=== PATIENT | female | born 1945 | race Caucasian/White ===

== ENCOUNTER → 2019-03-20 16:00 | Outpatient (POV) | payer MEDICARE, SELFPAY | DX: Z00.00 Encounter for general adult medical examination without abnormal findings (principal) ==

== ENCOUNTER → 2020-01-15 13:32 | Outpatient (POV) | payer MEDICARE, MEDICAID, SELFPAY | PROVIDERS: PCP Family Medicine | DX: Z00.00 Encounter for general adult medical examination without abnormal findings (principal) ==

== ENCOUNTER → 2020-03-17 12:16 | Outpatient (CLI) | payer MEDICARE, MEDICAID, SELFPAY ==
[2020-03-17 13:21] LABS: Alanine Aminotransferase 17 U/L (12-78); Albumin Level 3.8 g/dl (3.5-5.0); Alkaline Phosphatase 90 U/L (38-126); Aspartate Amino Transferase 37 U/L (14-36); Bilirubin,Direct 0.1 mg/dl (0.0-0.4); Bilirubin,Indirect 0.5 mg/dL (0.0-0.9); Bilirubin,Total 0.6 mg/dl (0.2-1.3); Bilirubin,Unconjugated 0.5 mg/dL (0.0-1.1); Total Protein,Serum 7.6 g/dl (6.3-8.2)
== END ==
PROVIDERS: Visit Provider Internal Medicine Pulmonary Disease
DX: J84.112 Idiopathic pulmonary fibrosis (principal)
CPT/HCPCS: 36415; 80076

== ENCOUNTER 2020-03-30 13:50 | Outpatient (RCR) | payer MEDICARE, MEDICAID, SELFPAY | END 2020-06-11 13:44 | disposition home or self-care (01) | LOC: PT 13:50 | PROVIDERS: Visit Provider Internal Medicine Pulmonary Disease | DX: J84.10 Pulmonary fibrosis, unspecified (principal) | CPT/HCPCS: G0237; G0238 ==

== ENCOUNTER 2020-04-19 20:23 | Emergency (ER) | payer MEDICARE, MEDICAID, SELFPAY ==
[2020-04-19 20:35] VITALS: BP 184/74; PULSE 101; RESP 18; TEMP 36.6; O2SAT 95; BMI 30.2
[2020-04-19 20:40] VITALS: BMI 28.8
--- NOTE | 2020-04-19 20:41 | XR_ITS ---
PROCEDURE: XR CHEST 2V CLINICAL HISTORY: chest discomfort, incr bp COMPARISON: No exams were available for comparison FINDINGS: The cardiomediastinal silhouette and pulmonary vascularity are within normal limits. Use coarsening of the interstitial markings consistent pulmonary fibrosis. May be some patchy infiltrate in the right lower lobe superimposed upon the interstitial lung disease. There no previous available comparison. Lucency noted in the distal aspect of right clavicle may be due to subarticular cystic change IMPRESSION: Pulmonary fibrosis with possible superimposed right lower lobe pneumonia Dictated by: Pedrito Galvin MD 04/20/2020 06:10 Pedrito Galvin MD in [place] 04/20/2020 06:10
--- NOTE | 2020-04-19 20:41 | ECG_ITS ---
APPROVED REPORT Exam: Resting ECG HR:70 bpm ECG Measurements Heart Rate 70 AXES ID 160 P 45 QRSd 70 QRS 11 QT 406 T 68 QTc 438 <Conclusion> Normal sinus rhythm Possible Left atrial enlargement Borderline ECG Electronically signed by : Kosta Ye, 04/20/2020 09:59:23
--- NOTE | 2020-04-19 20:42 | CT_ITS ---
PROCEDURE: CT HEAD/BRAIN WO CON CLINICAL INDICATION: dizziness COMPARISON: CT HEADWO CT head/brain wo con from 06/07/2018 TECHNIQUE: Axial images obtained. All CT scans at the facility use one or more dose reduction, viz: automated exposure control, ma/kV adjustment per patient size (including targeted exams where dose is matched to indication, i.e. head), or iterative reconstruction technique. FINDINGS: No midline shift, mass effect, intracranial hemorrhage, hydrocephalus, or extra-axial fluid collection is evident. The calvarium has an unremarkable appearance. No mastoid effusion. No sinus air-fluid level. IMPRESSION: No acute intracranial finding Dictated by: Pedrito Galvin MD 04/19/2020 22:19 Pedrito Galvin MD in [facility] 04/19/2020 22:19
[2020-04-19 20:57] LABS: Basophils % 0.5 % (0.1-2.0); Eosinophils # 0.2 K/mm3 (0.0-0.4); Hemoglobin 13.8 g/dL (12.2-16.2); Lymphocytes # 2.8 K/mm3 (0.7-4.5); Lymphocytes % 38.4 % (10-50); Mean Corpuscular HGB Conc 33.6 g/dL (31.8-35.4); Mean Corpuscular Hemoglobin 33.4 pg (27.0-31.2); Mean Corpuscular Volume 99.3 fl (81-99); Mean Platelet Volume 7.7 fl (7.4-10.4); Monocytes # 0.4 K/mm3 (0.1-1.0); Platelet Count 269 K/mm3 (142-424); Red Blood Count 4.13 M/mm3 (4.20-5.40); Red Cell Distribution Width 12.9 % (11.5-17.5); White Blood Count 7.4 K/mm3 (4.8-10.8)
[2020-04-19 20:59] LABS: Anion Gap 12.4 mEq/L (5-15); Blood Urea Nitrogen 22 mg/dl (7-17); Calcium 9.4 mg/dl (8.4-10.2); Carbon Dioxide 31 mmol/L (22.0-30.0); Chloride 97 mmol/L (98-107); Creatinine Clearance Estimated 68 mL/min (50-200); Estimated Glomerular Filt Rate 61 ml/min (>60); GFR (African American) 74 ML/MIN (>60); Glucose 344 mg/dl (74-100); Potassium 4.4 mmoL/L (3.5-5.1); Sodium 136 mmol/L (136-145)
[2020-04-19 21:13] LABS: Troponin I < 0.01 ng/ml (0.00-0.034)
[2020-04-19 21:22] VITALS: BP 171/76; PULSE 78; RESP 18; O2SAT 98
[2020-04-19 21:45] VITALS: BP 140/72; PULSE 74; RESP 18; O2SAT 98
[2020-04-19 22:19] LABS: Microscopic, Urine URINE MICROSCOPIC (MICROSCOPIC)
[2020-04-19 22:21] LABS: Appearance,Urine CLEAR (Clear); Bilirubin,Urine Negative (Negative); Blood, Urine TRACE-I (Negative); Color,Urine YELLOW (Yellow); Glucose,Urine (UA) 3+ (Negative); Ketones,Urine Negative (Negative); Leukocyte Esterase,Urine TRACE (Negative); Nitrate,Urine Negative (Negative); PH,Urine 5.5 (5.0-8.5); Protein,Urine Negative (Negative); Urobilinogen,Urine 0.2 EU/dl (0.2)
--- NOTE | 2020-04-19 22:26 | HMH.EDDIZZ ---
ED Disposition Clinical Impression: Vertigo, Pulmonary fibrosis, unspecified, Diabetes 1.5, managed as type 1 Disposition: Home, Self-Care Condition on Discharge: Good Instructions: Vertigo Additional Instructions: call pcp in am Referrals: Roger Cisneros [Primary Care Provider] - - Critical Care Critical Care Time: No Attestation: On 04/19/20, the high probability of a clinically significant, sudden or life threatening deterioration of the following system(s) required my full and direct attention, intervention and personal management. The time I documented below is in addition to time spent performing reported procedures but includes the following listed in this critical care notation. Medical Decision Making - Medical Records Medical records reviewed: Yes: I reviewed the patient's medical records. - Alex Inquiry Pt receiving controlled substance: No Vital Signs: 04/19/20 20:35 04/19/20 21:22 04/19/20 21:45 Temperature 97.8 F Temperature Source Oral Pulse Rate [Left] 101 H 78 74 Respiratory Rate 18 18 18 Blood Pressure [Left Arm] 184/74 H 171/76 H 140/72 Blood Pressure Mean [Left Arm] 110 107 94 Blood Pressure Source [Left Arm] Automatic Cuff Automatic Cuff Automatic Cuff Blood Pressure Position [Left Arm] Sitting Sitting Sitting 02 Sat by Pulse Oximetry 95 98 98 Oxygen Delivery Method Room Air Room Air Room Air 04/19/20 22:33 Temperature Temperature Source Pulse Rate [Left] 74 Respiratory Rate 17 Blood Pressure [Left Arm] 154/72 H Blood Pressure Mean [Left Arm] 99 Blood Pressure Source [Left Arm] Automatic Cuff Blood Pressure Position [Left Arm] Sitting 02 Sat by Pulse Oximetry 97 Oxygen Delivery Method Room Air - Lab Data Lab results reviewed: Yes: I reviewed the patient's lab results. Lab Results 04/19/20 20:58: WBC 7.4, RBC 4.13 L, Hgb 13.8, Hct 41.0, MCV 99.3 H, MCH 33.4 H, MCHC 33.6, RDW 12.9, Plt Count 269, MPV 7.7, Neut % (Auto) 54.0, Lymph % (Auto) 38.4, Snyder % (Auto) 5.0, Eos % (Auto) 2.0, Baso % (Auto) 0.5, Neut # (Auto) 4.0, Lymph # (Auto) 2.8, Snyder # (Auto) 0.4, Eos # (Auto) 0.2, Baso # (Auto) 0.0 04/19/20 20:58: Sodium 136, Potassium 4.4, Chloride 97 L, Carbon Dioxide 31 H, Anion Gap 12.4, BUN 22 H, Creatinine 0.90, Estimated Creat Clear 68, Estimated GFR 61, Est GFR ( Amer) 74, Glucose 344 H, Calcium 9.4, Troponin I < 0.01 04/19/20 22:15: Urine Color Yellow, Urine Appearance Clear, Urine pH 5.5, Ur Specific [place] 1.020, Urine Protein Negative, Urine Glucose (UA) 3+, Urine Ketones Negative, Urine Blood Trace-i, Urine Nitrate Negative, Urine Bilirubin Negative, Urine Urobilinogen 0.2, Ur Leukocyte Esterase Trace, Urine RBC 3-5, Urine WBC 20-50, Ur Squamous Epith Cells 3-5 Result diagrams: 04/19/20 20:58 04/19/20 20:58 Orders (Tests/Meds): ORDERS Category Date Time Status XR chest 2V Stat Exams 04/19/20 20:41 Taken Troponin I Q3H Lab 04/19/20 23:45 Ordered Troponin I Q3H Lab 04/20/20 02:45 Ordered Urine Culture Stat Micro 04/19/20 22:15 Received - Radiology Data #1 Image(s): Chest Image Reviewed: Yes I reviewed the patient's radiology image Preliminary Findings: Abnormal (pul fibrosis) - CT Data CT Scan: Head Time Received: 22:[address] Reviewed: Yes: I have viewed the radiologist's interpretation Preliminary Findings: Normal/NAD - ECG Data Tracing #1 Normal Sinus Rhythm: Yes Ischemic changes: non-specific ST-T wave changes Dizzy HPI - General Chief Complaint: Dizziness Stated Complaint: Blood pressure up&down Time Seen by Provider: 04/19/20 21:00 Mode of Arrival: Ambulatory Source of Information: Patient, Medical Record Limitations: No Limitations Description of Symptoms (Recalled from ER Triage Doc. by RN): pt states her blood presurre has been high all day and she is dizzy. - History of Present Illness HPI Narrative: pt with episode of dizzy this afternoon worse with mov - no speech or visual sx and no other neur
[2020-04-19 22:27] LABS: WBC,Urine 20-50 #/hpf (0-3)
[2020-04-19 22:33] VITALS: BP 154/72; PULSE 74; RESP 17; O2SAT 97
[2020-04-19 22:49] VITALS: BP 154/72; PULSE 78; RESP 17; TEMP 36.6; O2SAT 97
[2020-04-19 23:16] LABS: Hemoglobin A1C 8.7 % (4.0-6.0)
== END 2020-04-19 22:51 | disposition home or self-care (01) ==
PROVIDERS: Emergency Provider Emergency Medicine; PCP Family Medicine
DX: R42 Dizziness and giddiness (principal); J84.10 Pulmonary fibrosis, unspecified; I10 Essential (primary) hypertension; E10.65 Type 1 diabetes mellitus with hyperglycemia; Z79.4 Long term (current) use of insulin; Z79.899 Other long term (current) drug therapy
CPT/HCPCS: 70450; 71046; 80048; 81001; 83036; 84484; 85025; 87086; 93005; 99283

== ENCOUNTER → 2020-05-27 15:38 | Outpatient (CLI) | payer MEDICARE, MEDICAID, SELFPAY ==
[2020-05-27 16:16] LABS: Basophils % 0.6 % (0.1-2.0); Eosinophils # 0.1 K/mm3 (0.0-0.4); Eosinophils % 1.7 % (0.1-12.0); Hematocrit 40.5 % (37.0-47.0); Hemoglobin 13.3 g/dL (12.2-16.2); Lymphocytes % 34.6 % (10-50); Mean Corpuscular HGB Conc 32.9 g/dL (31.8-35.4); Mean Corpuscular Hemoglobin 34.2 pg (27.0-31.2); Mean Corpuscular Volume 103.9 fl (81-99); Mean Platelet Volume 7.9 fl (7.4-10.4); Monocytes # 0.3 K/mm3 (0.1-1.0); Monocytes % 5.9 % (1.7-9.3); Neutrophils # 3.3 K/mm3 (1.8-7.8); Neutrophils % 57.2 % (37.0-80.0); Platelet Count 256 K/mm3 (142-424); Red Cell Distribution Width 13.2 % (11.5-17.5); White Blood Count 5.8 K/mm3 (4.8-10.8)
[2020-05-27 16:40] LABS: Erythrocyte Sedimentation Rate 70 mm/hr (0-30)
[2020-05-27 16:43] LABS: Alanine Aminotransferase 24 U/L (12-78); Albumin Level 4.1 g/dl (3.5-5.0); Alkaline Phosphatase 130 U/L (38-126); Anion Gap 11.3 mEq/L (5-15); Aspartate Amino Transferase 39 U/L (14-36); Bilirubin,Direct 0.2 mg/dl (0.0-0.4); Bilirubin,Indirect 0.4 mg/dL (0.0-0.9); Bilirubin,Total 0.6 mg/dl (0.2-1.3); Bilirubin,Unconjugated 0.4 mg/dL (0.0-1.1); Blood Urea Nitrogen 16 mg/dl (7-17); Calcium 9.4 mg/dl (8.4-10.2); Carbon Dioxide 30 mmol/L (22.0-30.0); Chloride 101 mmol/L (98-107); Estimated Glomerular Filt Rate 70 ml/min (>60); GFR (African American) 85 ML/MIN (>60); Glucose 334 mg/dl (74-100); Potassium 4.3 mmoL/L (3.5-5.1); Sodium 138 mmol/L (136-145); Total Protein,Serum 8.9 g/dl (6.3-8.2); Uric Acid 7.1 mg/dl (2.5-6.2)
[2020-05-27 16:49] LABS: C-Reactive Protein 3.2 mg/L (0-4)
[2020-05-29 11:24] LABS: RA Latex Turbid. 16.5 IU/mL (0.0-13.9)
[2020-05-29 12:16] LABS: Sjogren's Anti-SS-A 4.8 AI (0.0-0.9)
[2020-05-29 17:19] LABS: Sjogren's Anti-SS-B <0.2 AI (0.0-0.9)
[2020-05-29 18:36] LABS: Cytoplasmic (C-ANCA) <1:20 titer (Neg:<1:20)
[2020-05-30 18:02] LABS: Homogeneous Pattern >1:1280 (.)
[2020-05-30 18:16] LABS: Anti-Cyclic Citrullinated Pept 6 units (0-19); Antinuclear Antibodies, IFA Positive (.)
[2020-05-30 18:18] LABS: Perinuclear (P-ANCA) <1:20 titer (Neg:<1:20)
[2020-06-21 16:26] LABS: Antinuclear Antibodies (ANA) Positive
[2020-06-21 16:28] LABS: Anti-DNA (DS) Ab Charge YES
[2020-06-21 16:31] LABS: Anti-DNA (DS) Ab Qn 26
[2020-06-21 16:32] LABS: RNP Antibodies Charge YES
[2020-06-21 16:33] LABS: Antiscleroderma-70 Abs Charge YES; Antiscleroderma-70 Antibodies <.2; RNP Antibodies <.2; Smith Antibodies Charge YES
[2020-06-21 16:34] LABS: Anti-Jo-1 Charge YES; Antichromatin Abs Charge YES; Antichromatin Antibodies 2.3; Sjogren's Anti-SS-A 5.3; Sjogren's Anti-SS-A Ab Charge YES; Sjogren's Anti-SS-B <.2; Sjogren's Anti-SS-B Ab Charge YES
[2020-06-21 16:35] LABS: Anti-Centromere B Abs Charge YES; Anti-Centromere B Antibodies <.2; Anti-Jo-1 <.2
== END ==
PROVIDERS: Visit Provider Internal Medicine Pulmonary Disease
DX: D86.1 Sarcoidosis of lymph nodes (principal); J84.10 Pulmonary fibrosis, unspecified; R06.00 Dyspnea, unspecified; R06.02 Shortness of breath; J84.9 Interstitial pulmonary disease, unspecified; J98.4 Other disorders of lung
CPT/HCPCS: 36415; 80048; 80076; 84550; 85025; 85651; 86038; 86140; 86200; 86225; 86235; 86256; 86431

== ENCOUNTER → 2020-06-22 07:46 | Outpatient (CLI) | payer MEDICARE, MEDICAID, SELFPAY ==
--- NOTE | 2020-06-22 07:51 | CT_ITS ---
PROCEDURE: CT CHEST WO CON CLINICAL INDICATION: ild COMPARISON: CR XR CHEST 2V from 04/19/2020 TECHNIQUE: Axial images obtained with sagittal and coronal reformats. All CT scans at the facility use one or more dose reduction, viz: automated exposure control, ma/kV adjustment per patient size (including targeted exams where dose is matched to indication, i.e. head), or iterative reconstruction technique. FINDINGS: HEART AND MEDIASTINAL STRUCTURES: Sac size is borderline, there is mild aortic tortuosity. There is moderate arthrosclerotic calcification of the ascending aorta and aortic arch and descending thoracic aorta.. LUNGS AND PLEURAL SPACES: The lung foster are fairly well expanded. There is extensive irregular reticulation right upper and right lower lobe with some areas of early traction bronchiectasis right lower lobe and mild honeycombing as well in the subpleural locations right upper lobe and right lower lobe. Similar reticulation changes are seen in the left lung but less prominent and with no definite honeycombing seen. There is no definite acute pneumonic infiltrate seen. There is no pleural fluid. There is no pneumothorax. BONY STRUCTURES: There are mild multilevel degenerate changes of the thoracic spine. UPPER ABDOMEN: Calcified granulomata within the spleen. Prominent diffuse arthrosclerotic calcification of the upper abdominal aorta ADDITIONAL FINDINGS: No other significant abnormalities. IMPRESSION: Findings consistent with moderately advanced idiopathic pulmonary fibrosis more prominently involving the right lung than left as described above, no definite acute pneumonic infiltrate seen Dictated by: Dr. Good King MD 06/22/2020 09:32 Dr. Good King MD in [place] 06/22/2020 09:32
--- NOTE | 2020-06-22 08:14 | CA_ITS ---
APPROVED REPORT EXAM: Comprehensive 2D, Doppler, and color-flow Echocardiogram Relish Maker: Margaret Wiley RDCS Ht: 5 ft 10 in Wt: 198lbs BSA: 2.08 BP: 132/52 mmHg Indications: SOA,PUL FIBROSIS,HTN,EX SMOKER,SILVEIRA,OBESITY 2D Dimensions LVOT 1.66 cm (M/F) 1.5-2.5 M-Mode Dimensions RVDd 2.40 cm (0.9-2.6) LA Diam 3.51 cm (1.9-4.0) LVDd 4.40 cm (3.5-5.7) Ao Diam 2.66 cm (2.0-3.7) LVDs 3.16 cm (3.5-5.7) IVSd 0.60 cm (0.6-1.1) PWd 0.84 cm (0.6-1.1) EF (Teich) 54.70% FS 28.20% EDV (Teich) 87.70 mL ESV (Teich) 39.70 mL LV Diastology E Decel Time 230.00 (160-240 msec) E/A Ratio 0.4 MED E' 4.20 (< 7 cm/sec) E'/MED E' Ratio 10.69 (>14) LAT E' 4.60 (<10 cm/sec) E/LAT E' Ratio 9.76 (>14) Aortic Valve LVOT Max 109.00 (70-110 cm/s) LVOT VTI 23.73 cm AoV Peak Markie. 177.00 (50-130 cm/s) AO Peak GR. 12.50 mmHg AO Mean GR. 7.60 (<5 mmHg) AO VTI 35.24 (18-25 cm) DANE (VTI) 1.46 (2.5-4.5 cm2) Mitral Valve MV E Max Markie. 45.00 (40-130 cm/s) MV A Velocity 101.00 (40-130 cm/s) E/A Ratio 0.44 MV Decel. Time 230.00 (160-240 ms) MV PHT 67.00 ms Tricuspid Valve TR P. Velocity 270.00 cm/s RAP Estimate 11.00 mmHg RVSP 40.10 mmHg Left Ventricle Left atrium is mildly enlarged, left ventricle is normal size, there is mild concentric left ventricular hypertrophy, visually estimated ejection fraction 55% with no regional wall motion abnormality. Grade 1 diastolic dysfunction seen without tissue Doppler evidence of raise left atrial pressure. Right Ventricle Right atrium and left ventricle are mildly enlarged with normal contractility. Aortic Valve Aortic valve is minimally thickened and fibrosed, there is no aortic stenosis or aortic insufficiency. Mitral Valve Mitral valve leaflets are minimally thickened, there is mild mitral regurgitation. Tricuspid Valve Tricuspid valve is grossly normal, there is mild tricuspid regurgitation, calculated right ventricular systolic pressure is 40 mmHg. Pulmonic Valve Pulmonic valve is poorly visualized. Great Vessels Aortic root is normal size. Pericardium No significant pericardial effusion noted. Conclusion 1. Mildly in the left atrium, normal left ventricular size, mild concentric left ventricular hypertrophy, visually estimated ejection fraction 55% with no regional wall motion abnormality, grade 1 diastolic dysfunction seen without tissue Doppler evidence of raise left atrial pressure. 2. Mild mitral and tricuspid regurgitation, calculated right ventricular systolic pressure is 40mmHg. 3. No significant pericardial effusion noted. Electronically signed by : Fernando Louis, 06/22/2020 20:52:21
== END ==
PROVIDERS: PCP Family Medicine; Visit Provider Internal Medicine Pulmonary Disease
DX: J84.10 Pulmonary fibrosis, unspecified (principal); J84.112 Idiopathic pulmonary fibrosis; R06.00 Dyspnea, unspecified; I95.9 Hypotension, unspecified; R06.02 Shortness of breath; R42 Dizziness and giddiness; R60.0 Localized edema
CPT/HCPCS: 71250; 93306; 94060; 94618; 94726; 94729

== ENCOUNTER → 2020-09-23 14:06 | Outpatient (POV) | payer MEDICARE, MEDICAID, SELFPAY | DX: Z00.00 Encounter for general adult medical examination without abnormal findings (principal) ==

== ENCOUNTER → 2020-11-27 09:49 | Outpatient (CLI) | payer MEDICARE, MEDICAID, SELFPAY | PROVIDERS: PCP Family Medicine; Visit Provider Internal Medicine Pulmonary Disease | DX: R06.09 Other forms of dyspnea (principal) | CPT/HCPCS: 94060; 94618; 94727; 94729 ==

== ENCOUNTER → 2020-12-11 11:01 | Outpatient (CLI) | payer MEDICARE, MEDICAID, SELFPAY ==
[2020-12-11 12:11] LABS: Alanine Aminotransferase 16 U/L (12-78); Aspartate Amino Transferase 33 U/L (14-36); Bilirubin,Unconjugated 0.5 mg/dL (0.0-1.1)
[2020-12-11 12:12] LABS: Albumin Level 4.4 g/dl (3.5-5.0); Alkaline Phosphatase 99 U/L (38-126); Bilirubin,Direct 0.1 mg/dl (0.0-0.4); Bilirubin,Indirect 0.5 mg/dL (0.0-0.9); Bilirubin,Total 0.6 mg/dl (0.2-1.3); Total Protein,Serum 8.6 g/dl (6.3-8.2)
[2020-12-11 12:17] LABS: C-Reactive Protein 1.4 mg/L (0-4)
== END ==
PROVIDERS: Visit Provider Internal Medicine Pulmonary Disease
DX: J84.9 Interstitial pulmonary disease, unspecified (principal)
CPT/HCPCS: 36415; 80076; 86140

== ENCOUNTER → 2021-03-01 14:13 | Outpatient (CLI) | payer MEDICARE, MEDICAID, SELFPAY ==
[2021-03-01 15:28] LABS: Alanine Aminotransferase 70 U/L (12-78); Albumin Level 4.5 g/dl (3.5-5.0); Alkaline Phosphatase 148 U/L (38-126); Aspartate Amino Transferase 54 U/L (14-36); Bilirubin,Direct 0.6 mg/dl (0.0-0.4); Bilirubin,Indirect 0.3 mg/dL (0.0-0.9); Bilirubin,Total 0.9 mg/dl (0.2-1.3); Bilirubin,Unconjugated 0.3 mg/dL (0.0-1.1); Total Protein,Serum 8.5 g/dl (6.3-8.2)
== END ==
PROVIDERS: Visit Provider Internal Medicine Pulmonary Disease
DX: J84.10 Pulmonary fibrosis, unspecified (principal)
CPT/HCPCS: 36415; 80076

== ENCOUNTER → 2021-08-02 09:43 | Outpatient (CLI) | payer MEDICARE, MEDICAID, SELFPAY ==
[2021-08-02 10:45] VITALS: PULSE 79; PULSE 82
== END ==
PROVIDERS: PCP Family Medicine; Visit Provider Internal Medicine Pulmonary Disease
DX: R06.09 Other forms of dyspnea (principal)
CPT/HCPCS: 94060; 94640; 94726; 94729

== ENCOUNTER → 2021-09-20 12:05 | Outpatient (CLI) | payer MEDICARE, MEDICAID, SELFPAY ==
[2021-09-20 13:42] LABS: Chloride 101 mmol/L (98-107); Potassium 4.5 mmoL/L (3.5-5.1); Sodium 138 mmol/L (136-145)
[2021-09-20 13:45] LABS: Alanine Aminotransferase 12 U/L (12-78); Albumin Level 4.1 g/dl (3.5-5.0); Albumin/Globulin Ratio 1.1 (1.1-1.8); Alkaline Phosphatase 84 U/L (38-126); Anion Gap 11.5 mEq/L (5-15); Aspartate Amino Transferase 25 U/L (14-36); Bilirubin,Direct 0.2 mg/dl (0.0-0.4); Bilirubin,Indirect 0.3 mg/dL (0.0-0.9); Bilirubin,Total 0.5 mg/dl (0.2-1.3); Bilirubin,Unconjugated 0.2 mg/dL (0.0-1.1); Blood Urea Nitrogen 17 mg/dl (7-17); Calcium 9.5 mg/dl (8.4-10.2); Carbon Dioxide 30 mmol/L (22.0-30.0); Estimated Glomerular Filt Rate 70 ml/min (>60); GFR (African American) 85 ML/MIN (>60); Globulin 3.6 g/dL (1.3-3.2); Glucose 139 mg/dl (74-100); Total Protein,Serum 7.7 g/dl (6.3-8.2)
[2021-09-21 08:17] LABS: Hep A Ab, IgM Negative (Negative); Hep A Ab, Total Positive (Negative); Hep B Core Ab, Total Negative (Negative); Hep B Surface Ab, Qual Non Reactive (.); Hepatitis C Antibody 0.1 s/co ratio (0.0-0.9)
[2021-09-22 18:09] LABS: QuantiFERON-TB Gold Plus Negative (Negative)
== END ==
PROVIDERS: PCP Family Medicine; Visit Provider Internal Medicine Pulmonary Disease
DX: J84.10 Pulmonary fibrosis, unspecified (principal); D84.9 Immunodeficiency, unspecified; Z00.00 Encounter for general adult medical examination without abnormal findings; R06.09 Other forms of dyspnea; Z79.899 Other long term (current) drug therapy; Z11.4 Encounter for screening for human immunodeficiency virus [HIV]
CPT/HCPCS: 36415; 80053; 80076; 86480; 86704; 86706; 86708; 87380

== ENCOUNTER → 2021-12-15 12:44 | Outpatient (CLI) | payer MEDICARE, MEDICAID, SELFPAY | PROVIDERS: PCP Family Medicine; Visit Provider Internal Medicine Pulmonary Disease | DX: R06.02 Shortness of breath (principal) | CPT/HCPCS: 94060; 94726; 94729 ==

== ENCOUNTER → 2022-03-23 13:32 | Outpatient (CLI) | payer MEDICARE, MEDICAID, SELFPAY ==
[2022-03-23 14:14] LABS: Basophils % 0.4 % (0.1-2.0); Eosinophils # 0.2 K/mm3 (0.0-0.4); Hematocrit 37.4 % (37.0-47.0); Hemoglobin 12.6 g/dL (12.2-16.2); Lymphocytes # 1.9 K/mm3 (0.7-4.5); Lymphocytes % 21.9 % (10-50); Mean Corpuscular HGB Conc 33.6 g/dL (31.8-35.4); Mean Corpuscular Hemoglobin 32.1 pg (27.0-31.2); Mean Corpuscular Volume 95.4 fl (81-99); Mean Platelet Volume 7.3 fl (7.4-10.4); Monocytes # 0.5 K/mm3 (0.1-1.0); Monocytes % 5.7 % (1.7-9.3); Neutrophils # 6.1 K/mm3 (1.8-7.8); Platelet Count 320 K/mm3 (142-424); Red Blood Count 3.92 M/mm3 (4.20-5.40); Red Cell Distribution Width 12.6 % (11.5-17.5); White Blood Count 8.6 K/mm3 (4.8-10.8)
[2022-03-23 14:48] LABS: Chloride 96 mmol/L (98-107); Potassium 4.6 mmoL/L (3.5-5.1); Sodium 133 mmol/L (136-145)
[2022-03-23 14:51] LABS: Alanine Aminotransferase 18 U/L (12-78); Alkaline Phosphatase 99 U/L (38-126); Anion Gap 13.6 mEq/L (5-15); Aspartate Amino Transferase 33 U/L (14-36); Bilirubin,Direct 0.1 mg/dl (0.0-0.4); Bilirubin,Indirect 0.5 mg/dL (0.0-0.9); Bilirubin,Total 0.6 mg/dl (0.2-1.3); Bilirubin,Unconjugated 0.5 mg/dL (0.0-1.1); Blood Urea Nitrogen 18 mg/dl (7-17); Calcium 9.5 mg/dl (8.4-10.2); Carbon Dioxide 28 mmol/L (22.0-30.0); Estimated Glomerular Filt Rate 82 ml/min (>60); GFR (African American) 99 ML/MIN (>60); Glucose 106 mg/dl (74-100)
[2022-03-23 14:52] LABS: Albumin/Globulin Ratio 1.1 (1.1-1.8); Globulin 3.5 g/dL (1.3-3.2); Total Protein,Serum 7.5 g/dl (6.3-8.2)
== END ==
PROVIDERS: PCP Family Medicine; Visit Provider Internal Medicine Pulmonary Disease
DX: Z79.899 Other long term (current) drug therapy (principal); J45.909 Unspecified asthma, uncomplicated; J84.10 Pulmonary fibrosis, unspecified
CPT/HCPCS: 36415; 80053; 80076; 85025

== ENCOUNTER → 2022-04-08 10:33 | Outpatient (CLI) | payer MEDICARE, MEDICAID, SELFPAY ==
--- NOTE | 2022-04-08 10:48 | XR_ITS ---
FINAL REPORT CLINICAL HISTORY: soa COMPARISON: 04/19/2020 FINDINGS: Two views of the chest were obtained. The heart size and pulmonary vascularity are within normal limits. The mediastinum is normal. There are worsening pulmonary opacities. Some of this may represent fibrosis/scarring. There is likely superimposed edema or pneumonia. There is no pneumothorax. The bony thorax is intact. IMPRESSION: Worsening pulmonary opacities may represent fibrosis or scarring and likely superimposed edema or pneumonia. Reviewed, Interpreted and Dictated by Juan Luis Olivier III, MD Transcribed by Jodi Holbrook Authenticated and [facility]
[2022-04-08 12:50] LABS: Alanine Aminotransferase 20 U/L (12-78); Albumin Level 4.1 g/dl (3.5-5.0); Albumin/Globulin Ratio 1.1 (1.1-1.8); Alkaline Phosphatase 131 U/L (38-126); Anion Gap 12.1 mEq/L (5-15); Aspartate Amino Transferase 31 U/L (14-36); Bilirubin,Total 0.5 mg/dl (0.2-1.3); Blood Urea Nitrogen 16 mg/dl (7-17); Calcium 9.7 mg/dl (8.4-10.2); Carbon Dioxide 30 mmol/L (22.0-30.0); Chloride 97 mmol/L (98-107); Estimated Glomerular Filt Rate 82 ml/min (>60); GFR (African American) 99 ML/MIN (>60); Globulin 3.7 g/dL (1.3-3.2); Glucose 75 mg/dl (74-100); Lipase 46 U/L (23-300); Potassium 5.1 mmoL/L (3.5-5.1); Sodium 134 mmol/L (136-145); Total Protein,Serum 7.8 g/dl (6.3-8.2)
== END ==
PROVIDERS: PCP Family Medicine; Visit Provider Internal Medicine Pulmonary Disease
DX: R06.02 Shortness of breath (principal); R10.13 Epigastric pain
CPT/HCPCS: 36415; 71046; 80053; 83690

== ENCOUNTER → 2022-06-23 12:50 | Outpatient (CLI) | payer MEDICARE, MEDICAID, SELFPAY | PROVIDERS: PCP Family Medicine; Visit Provider Internal Medicine Pulmonary Disease | DX: R06.09 Other forms of dyspnea (principal) | CPT/HCPCS: 94010 ==

== ENCOUNTER 2022-09-20 20:45 | Inpatient (IN) | payer MEDICARE, MEDICAID, SELFPAY ==
[2022-09-20 20:45] VITALS: BP 117/57; PULSE 108; RESP 24; TEMP 38.7; O2SAT 94; BMI 29.0
[2022-09-20 20:46] VITALS: BMI 29.0
--- NOTE | 2022-09-20 20:46 | XR_ITS ---
PROCEDURE INFORMATION: Exam: XR Chest Exam date and time: 09/20/2022 9:07 PM Age: 77 years old Clinical indication: Shortness of breath; Patient HX: HX of pulmonary fibrosis; Additional info: SOA TECHNIQUE: Imaging protocol: Radiologic exam of the chest. Views: 1 view. COMPARISON: CR XR CHEST 2V 04/08/2022 10:55 AM FINDINGS: Airway: Diffuse interstitial airway opacities similar to prior examination. Lungs: No consolidation. Pleural spaces: No pneumothorax. Heart/Mediastinum: No cardiomegaly. Bones/joints: No acute abnormality. IMPRESSION: Diffuse interstitial airway opacities similar to prior examination.
[2022-09-20 20:48] LABS: ABG Base Excess 2.9 mmol/L (-2.4-2.3); ABG HCO3 26.6 mmhg (22.0-26.0); ABG Oxygen Saturation 98 % (90-100); ABG PCO2 37.6 mmhg (35.0-45.0); ABG PH 7.47 mmol/L (7.35-7.45); ABG TCO2 27.8 mmhg (23-27)
--- NOTE | 2022-09-20 20:48 | ECG_ITS ---
APPROVED REPORT Exam: Resting ECG HR:98 bpm ECG Measurements Heart Rate 98 AXES MN 127 P 28 QRSd 86 QRS 51 QT 323 T 11 QTc 378 Conclusion SINUS RHYTHM NORMAL ECG UNCONFIRMED REPORT Electronically signed by : Amish Chu MD 09/21/2022 21:32:29
[2022-09-20 20:49] LABS: Allen's Test Acceptable; Oxygen 100 %; Source Right Radial
[2022-09-20 20:57] LABS: Basophils # 0.1 K/mm3 (0-0.2); Basophils % 0.3 % (0.1-2.0); Eosinophils # 0.3 K/mm3 (0.0-0.4); Eosinophils % 1.2 % (0.1-12.0); Hematocrit 34.7 % (37.0-47.0); Hemoglobin 11.5 g/dL (12.2-16.2); Lymphocytes # 0.5 K/mm3 (0.7-4.5); Lymphocytes % 2.5 % (10-50); Mean Corpuscular HGB Conc 33.1 g/dL (31.8-35.4); Mean Corpuscular Hemoglobin 31.8 pg (27.0-31.2); Mean Corpuscular Volume 96.1 fl (81-99); Mean Platelet Volume 7.8 fl (7.4-10.4); Monocytes # 0.7 K/mm3 (0.1-1.0); Monocytes % 3.5 % (1.7-9.3); Neutrophils # 19.2 K/mm3 (1.8-7.8); Neutrophils % 92.6 % (37.0-80.0); Platelet Count 395 K/mm3 (142-424); Red Blood Count 3.61 M/mm3 (4.20-5.40); Red Cell Distribution Width 12.5 % (11.5-17.5); White Blood Count 20.7 K/mm3 (4.8-10.8)
[2022-09-20 20:59] LABS: MANUAL DIFFERENTIAL MANUAL DIFFERENTIAL (MANUAL DIFF)
[2022-09-20 21:00] LABS: Alanine Aminotransferase 17 U/L (12-78); Albumin Level 3.7 g/dl (3.5-5.0); Alkaline Phosphatase 93 U/L (38-126); Anion Gap 11.8 mEq/L (5-15); Aspartate Amino Transferase 27 U/L (14-36); Bilirubin,Total 0.6 mg/dl (0.2-1.3); Blood Urea Nitrogen 17 mg/dl (7-17); Calcium 8.4 mg/dl (8.4-10.2); Carbon Dioxide 28 mmol/L (22.0-30.0); Chloride 96 mmol/L (98-107); Creatinine Clearance Estimated 63 mL/min (50-200); Estimated Glomerular Filt Rate 70 ml/min (>60); GFR (African American) 84 ML/MIN (>60); Globulin 3.6 g/dL (1.3-3.2); Glucose 152 mg/dl (74-100); Potassium 4.8 mmoL/L (3.5-5.1); Sodium 131 mmol/L (136-145); Total Protein,Serum 7.3 g/dl (6.3-8.2)
--- NOTE | 2022-09-20 21:01 | HMH.EDSOB ---
Discharge Plan Disposition Patient Disposition: Admitted As Inpatient Chief Complaint: Shortness of Breath/Dyspnea Prescriptions Prescriptions: No Action mycophenolate mofetil 500 mg tablet 1,000 mg PO BID 90 Days Qty: 360 2RF atorvastatin 40 mg tablet 40 mg PO lisinopril-hydrochlorothiazide 20-12.5 mg tablet 1 tab PO azelastine 205.5 mcg (0.15 %) spray,non-aerosol 1 spray intranasal HS 90 Days Qty: 30 2RF Rx Instructions: administer into each nostril benzonatate 100 mg capsule 100 mg PO BID PRN (Reason: cough) Qty: 90 1RF ondansetron HCl [Zofran] 4 mg tablet 4 mg PO Q12H PRN (Reason: nausea and vomiting) Qty: 30 0RF Spiriva with HandiHaler 18 mcg capsule, w/inhalation device 1 cap IH DAILY 90 Days Qty: 90 3RF Rx Instructions: puncture 1 cap using device; one dose = 2 inhalations ipratropium-albuterol 0.5 mg-3 mg(2.5 mg base)/3 mL solution for nebulization 3 ml INHALATION QID PRN (Reason: shortness of breath or wheezing) Qty: 180 3RF esomeprazole magnesium [Nexium] 40 mg capsule,delayed release(DR/EC) 40 mg PO DAILY Qty: 30 4RF clonazepam 1 MG tablet 1 mg PO DAILY hydrocodone-acetaminophen 1 EACH tablet 1 each PO Q8H insulin aspart U-100 100 UNIT/ML insulin pen 5 units SQ TID insulin glargine 100 UNIT/ML insulin pen 42 unit SQ BID Referrals Follow up/Referrals: Roger Cisneros [Primary Care Provider] - See instructions Clinical Impressions Clinical Impression: Community acquired pneumonia, Acute exacerbation of chronic obstructive airways disease Discharge ED Provider: Ross Tolentino Resp/SOB HPI General Chief Complaint: Shortness of Breath/Dyspnea Stated Complaint: SOB Time Seen by Provider: 09/20/22 21:01 Mode of Arrival: EMS Source of Information: Patient, EMS and Medical Record Limitations: No Limitations Description of Symptoms (Recalled from ER Triage Doc. by RN): pt c/o increasing SOA that started this morning History of Present Illness fever with sob with hx of resp illness - dec po intake Complaint: shortness of breath and cough Onset (ago): day(s) Severity: moderate Known history of: COPD and diabetes Related Data Home oxygen amount: 4 liters Home Medications Medication Instructions Recorded Confirmed clonazepam 1 mg tablet 1 mg PO DAILY Anxiety 06/07/18 08/31/22 hydrocodone 10 mg-acetaminophen 1 each PO Q8H Pain 06/07/18 08/31/22 325 mg tablet insulin aspart U-100 100 unit/mL 5 units SQ TID DM 06/07/18 08/31/22 (3 mL) subcutaneous pen insulin glargine 100 unit/mL (3 42 unit SQ BID DM 06/07/18 08/31/22 mL) subcutaneous pen lisinopril 20 1 tab PO 05/27/20 08/31/22 mg-hydrochlorothiazide 12.5 mg tablet albuterol sulfate 90 mcg/actuation 1 puff inhalation NEEDED PRN 09/20/22 09/20/22 aerosol inhaler Bronchospasm azelastine 205.5 mcg (0.15 %) 1 spray intranasal HS . 09/20/22 09/20/22 nasal spray esomeprazole magnesium 40 mg 40 mg PO DAILY GERD 09/20/22 capsule,delayed release (Nexium) hydroxychloroquine 200 mg tablet 200 mg PO BID Hypertension 09/20/22 09/20/22 melatonin 5 mg tablet 5 mg PO HS PRN Sleep 09/20/22 09/20/22 mycophenolate mofetil 500 mg tablet 1,000 mg PO BID immuno support 09/20/22 09/20/22 Previous Rx's Medication Instructions Recorded ipratropium 0.5 mg-albuterol 3 mg 3 ml inhalation QID PRN shortness 04/18/22 (2.5 mg base)/3 mL nebulization of breath or wheezing #180 mL soln benzonatate 100 mg capsule 100 mg PO BID PRN cough #90 caps 06/23/22 Allergies Allergy/AdvReac Type Severity Reaction Status Date / Time No Known Allergies Allergy Verified 08/31/22 14:29 [facility] Disclaimer: The information contained in this section may have been updated after the patient was seen, as this information can be updated by other users. Medical History Dyspnea on exertion Epigastric pain ILD (interstiti
[2022-09-20 21:07] LABS: Coronavirus 19, PCR Not Detected (NotDetected); Influenza A, PCR Not Detected (NotDetected); Influenza B, PCR Not Detected (NotDetected)
[2022-09-20 21:13] LABS: Lactic Acid 1.3 mmol/L (0.7-2.1)
[2022-09-20 21:15] LABS: NT Pro Brain Natriuretic Pep. 485 pg/mL (0-450)
[2022-09-20 21:19] LABS: Procalcitonin 0.277 ng/mL (0.0-2.0)
[2022-09-20 21:24] LABS: Troponin I < 0.01 ng/ml (0.00-0.034)
--- NOTE | 2022-09-20 21:27 | PC.NURSE ---
dr paris speaking with hospitalist
[2022-09-20 21:30] VITALS: BP 99/53; PULSE 97; O2SAT 97
[2022-09-20 21:47] LABS: C-Reactive Protein 21.4 mg/L (0-4)
--- NOTE | 2022-09-20 21:59 | EXP.HP ---
History of Present Illness *Admission Date: 09/20/22 *Reason for visit:: Shortness of air, non-productive cough, weakness *History of present illness: Ms. Paz is a 77-year-old female with a past medical history of Sjorgens, Lupus on immunosuppressive therapy, Pulmonary Fibrosis/ILD on chronic home oxygen at 4L nasal cannula, Diabetes Mellitus and h/o Diverticultitis. She presents to [facility] due to a reported 1 day history of shortness of air, non-productive cough, weakness. In the ER, the patient was found to have a WBC of 20.7, she was febrile with a temperature of 101.7, HR was elevated at 108, RR was elevated at 24, Chest x-ray showed diffuse interstitial opacities. Qsofa score 2 points (RR >22, SBP <100). In the ER the patient had blood cultures drawn, she is currently meeting criteria for Sepsis without shock. She will be placed on broad spectrum antibiotics due to concern with sepsis and on immunosuppressive drugs. Given her history of lung disease and current complaints, Pulmonary will be consulted to see. Further imaging and cultures will be ordered. The plan of care was discussed with the patient and her daughter at bedside on admission. Both verbalized understanding and agreement with the plan of care. [facility] Disclaimer: The information contained in this section may have been updated after the patient was seen, as this information can be updated by other users. Medical History Dyspnea on exertion Epigastric pain ILD (interstitial lung disease) Pulmonary fibrosis Sjogren's disease SLE (systemic lupus erythematosus) Smoking history UIP (usual interstitial pneumonitis) Surgical History History of colonoscopy Family History Other No significant family history Social History Smoking Status: Former smoker alcohol intake: never current occupational status: retired Travel in the last 8 weeks: None Review of Systems Review of Systems Review of systems:: pertinent systems reviewed and negative unless documented below Constitutional Constitutional: Reports system reviewed and no additional complaints, except as documented Eyes Eyes: Reports system reviewed and no additional complaints, except as documented ENT Ears, Nose, Mouth, and Throat: Reports system reviewed and no additional complaints, except as documented *Cardiovascular Cardiovascular: Reports system reviewed and no additional complaints, except as documented and Reports dyspnea *Respiratory Respiratory: Reports cough and Reports dyspnea *Gastrointestinal Gastrointestinal: Reports system reviewed and no additional complaints, except as documented *Genitourinary Genitourinary: Reports system reviewed and no additional complaints, except as documented *Musculoskeletal Musculoskeletal: Reports system reviewed and no additional complaints, except as documented Integumentary/Breasts Skin/Breast: Reports system reviewed and no additional complaints, except as documented *Neurologic Neurologic: Reports system reviewed and no additional complaints, except as documented Psychiatric Psychiatric: Reports system reviewed and no additional complaints, except as documented Endocrine Endocrine: Reports system reviewed and no additional complaints, except as documented Hematologic/Lymphatic Hematologic/Lymphatic: Reports system reviewed and no additional complaints, except as documented Allergic/Immunologic Allergic/Immunologic: Reports system reviewed and no additional complaints, except as documented Meds Home Medications and Allergies Home Medications Medication Instructions Recorded Confirmed Type clonazepam 1 mg tablet 1 mg PO DAILY Anxiety 06/07/18 09/20/22 History hydrocodone 10 mg-acetaminophen 10 each PO Q8H Pain 1
[2022-09-20 22:00] VITALS: BP 105/55; PULSE 93; O2SAT 95
[2022-09-20 22:03] LABS: Erythrocyte Sedimentation Rate 106 mm/hr (0-30)
[2022-09-20 22:17] LABS: D-Dimer 1.36 ug/mL (0.0-0.5); Lymphocytes % 7 % (10-50); Monocytes % 3 % (2-9); Neutrophils % 90 % (42-76); Platelet Estimate Normal; RBC Morphology Normal; Total Cells Counted 100
--- NOTE | 2022-09-20 22:21 | CT_ITS ---
PROCEDURE INFORMATION: Exam: CTA Chest With Contrast Exam date and time: 09/20/2022 10:37 PM Age: 77 years old Clinical indication: Abnormal findings; Abnormal diagnostic tests; Elevated d-dimer; Shortness of breath; Additional info: Shortness of air, elevated d-dimer TECHNIQUE: Imaging protocol: Computed tomographic angiography of the chest with contrast. 3D rendering (Not supervised by radiologist): MIP and/or 3D reconstructed images were created by the technologist. Radiation optimization: All CT scans at this facility use at least one of these dose optimization techniques: automated exposure control; mA and/or kV adjustment per patient size (includes targeted exams where dose is matched to clinical indication); or iterative reconstruction. Contrast material: ISOVUE; Contrast volume: 70 ml; Contrast route: INTRAVENOUS (IV); COMPARISON: CT CHEST WO CON 06/22/2020 8:05 AM FINDINGS: Pulmonary arteries: Normal. No pulmonary emboli. Aorta: Atherosclerotic calcification is noted diffusely throughout the thoracic aorta and within the great vessels. No evidence of aneurysm or dissection. Lungs: There has been interval worsening of diffuse honeycombing and interstitial thickening throughout both lungs with lower lobe and peripheral predominance compatible with chronic interstitial lung disease such as usual interstitial pneumonitis. Pleural spaces: Unremarkable. No pneumothorax. No pleural effusion. Heart: Heart is normal in size. Coronary artery calcifications are noted. Lymph nodes: There has been interval increase in size of a 5.7 cm posterior mediastinal mass centered just above the level of the maria luz. Associated small calcifications are noted in this area. There has developed mild right paratracheal lymphadenopathy Bones/joints: Unremarkable. No acute fracture. Soft tissues: There is a small hiatal hernia. IMPRESSION: 1. No evidence of pulmonary embolus 2. Interval increase in size of a now 5.7 cm posterior mediastinal mass and development of mild right paratracheal lymphadenopathy. Enlarging mass may represent a benign process such as duplication cyst given relatively slow slip box changer greater than 1 year, although malignancy not excluded and development of mild mediastinal lymphadenopathy raises concern. Consider biopsy if not previously performed. 3. Interval progression of findings of chronic interstitial lung disease in a pattern compatible with usual interstitial pneumonitis. 4. Small hiatal hernia
[2022-09-20 22:31] LABS: Procalcitonin 0.293 ng/mL (0.0-2.0)
--- NOTE | 2022-09-20 22:32 | PC.NURSE ---
pt out of room for CT @ this time.
[2022-09-20 22:39] VITALS: BMI 27.7
[2022-09-20 22:40] VITALS: BP 109/57; PULSE 94; RESP 22; TEMP 36.7; O2SAT 95
--- NOTE | 2022-09-20 22:43 | PC.NURSE ---
pt back to room @ this time.
--- NOTE | 2022-09-20 23:18 | PC.NURSE ---
PT ARRIVED TO FLOOR AT THIS TIME
[2022-09-20 23:51] VITALS: PULSE 81; PULSE 87
[2022-09-21] VITALS (13 sets, daily range): BP systolic 101–116; BP diastolic 43–53; PULSE 60–84; RESP 16–18; TEMP 36.5–37; O2SAT 95–100; BMI 61.2; BMI 28.0
[2022-09-21 00:07] LABS: Troponin I < 0.01 ng/ml (0.00-0.034)
[2022-09-21 03:19] LABS: Troponin I < 0.01 ng/ml (0.00-0.034)
--- NOTE | 2022-09-21 05:00 | PC.NURSE ---
Pt has not voiced any c/o to staff t/o shift. Coarse crackles heard scattered in lung field. Call light within reach.
[2022-09-21 06:34] LABS: MANUAL DIFFERENTIAL MANUAL DIFFERENTIAL (MANUAL DIFF)
[2022-09-21 06:38] LABS: Basophils % 0.2 % (0.1-2.0); Eosinophils # 0.2 K/mm3 (0.0-0.4); Eosinophils % 1.2 % (0.1-12.0); Hematocrit 31.4 % (37.0-47.0); Lymphocytes # 0.8 K/mm3 (0.7-4.5); Lymphocytes % 4.2 % (10-50); Mean Corpuscular HGB Conc 32.5 g/dL (31.8-35.4); Mean Corpuscular Hemoglobin 31.9 pg (27.0-31.2); Mean Corpuscular Volume 98.1 fl (81-99); Mean Platelet Volume 7.7 fl (7.4-10.4); Monocytes # 0.2 K/mm3 (0.1-1.0); Monocytes % 1.2 % (1.7-9.3); Neutrophils # 17.7 K/mm3 (1.8-7.8); Neutrophils % 93.3 % (37.0-80.0); Platelet Count 297 K/mm3 (142-424); Red Cell Distribution Width 12.5 % (11.5-17.5)
[2022-09-21 06:50] LABS: Alanine Aminotransferase 14 U/L (12-78); Albumin Level 3.4 g/dl (3.5-5.0); Alkaline Phosphatase 75 U/L (38-126); Anion Gap 8.9 mEq/L (5-15); Aspartate Amino Transferase 28 U/L (14-36); Bilirubin,Total 0.5 mg/dl (0.2-1.3); Blood Urea Nitrogen 20 mg/dl (7-17); Calcium 8.3 mg/dl (8.4-10.2); Carbon Dioxide 30 mmol/L (22.0-30.0); Chloride 96 mmol/L (98-107); Creatinine Clearance Estimated 45 mL/min (50-200); Estimated Glomerular Filt Rate 70 ml/min (>60); GFR (African American) 84 ML/MIN (>60); Globulin 3.3 g/dL (1.3-3.2); Glucose 187 mg/dl (74-100); Potassium 4.9 mmoL/L (3.5-5.1); Sodium 130 mmol/L (136-145); Total Protein,Serum 6.7 g/dl (6.3-8.2)
[2022-09-21 07:09] LABS: POC Glucose,Bedside 198 (70-110)
[2022-09-21 07:56] LABS: Lymphocytes % 8 % (10-50); Monocytes % 1 % (2-9); Neutrophils % 91 % (42-76); Total Cells Counted 100
[2022-09-21 07:57] LABS: Platelet Estimate Normal; RBC Morphology Normal
[2022-09-21 08:20] LABS: Hemoglobin 10.2 g/dL (12.2-16.2)
--- NOTE | 2022-09-21 08:47 | EXP.PHA.CONS ---
Pharmacy Consult Date: 09/21/22 Time: 08:47 Referring provider: DR. BEAUCHAMP Reason for Consult:: VANCOMCYIN DOSIN Allergies Allergy/AdvReac Type Severity Reaction Status Date / Time No Known Allergies Allergy Verified 08/31/22 14:29 Home Medications Medication Instructions Recorded Confirmed Type clonazepam 1 mg tablet 1 mg PO HS Anxiety 06/07/18 09/20/22 History hydrocodone 10 mg-acetaminophen 1 tab PO Q8H Pain 06/07/18 09/20/22 History 325 mg tablet insulin aspart U-100 100 unit/mL 5 units SQ TID Diabetes 06/07/18 08/31/22 History (3 mL) subcutaneous pen insulin glargine 100 unit/mL (3 42 unit SQ BID Diabetes 06/07/18 08/31/22 History mL) subcutaneous pen lisinopril 20 1 tab PO DAILY High blood pressure 05/27/20 09/20/22 History mg-hydrochlorothiazide 12.5 mg tablet ipratropium 0.5 mg-albuterol 3 mg 3 ml inhalation QID PRN shortness 04/18/22 09/20/22 Rx (2.5 mg base)/3 mL nebulization of breath or wheezing #180 mL soln benzonatate 100 mg capsule 100 mg PO BID PRN cough #90 caps 06/23/22 09/20/22 Rx albuterol sulfate 90 mcg/actuation 1 puff inhalation Q6H PRN 09/20/22 09/21/22 History aerosol inhaler Shortness Of Breath Or Wheezing esomeprazole magnesium 40 mg 40 mg PO DAILY Acid reflux 09/20/22 09/20/22 History capsule,delayed release (Nexium) hydroxychloroquine 200 mg tablet 400 mg PO DAILY Immune system 09/20/22 09/21/22 History support melatonin 5 mg tablet 5 mg PO HS PRN Sleep 09/20/22 09/20/22 History mycophenolate mofetil 500 mg tablet 1,000 mg PO BID Immune system 09/20/22 09/20/22 History support azelastine 137 mcg (0.1 %) nasal 1 spray intranasal HS Allergies 09/21/22 09/21/22 History spray aerosol tiotropium bromide 18 mcg capsule 18 mcg inhalation DAILY Breathing 09/21/22 09/21/22 History with inhalation device (Spiriva problems with HandiHaler) New Prescriptions to Start Prescriptions: Height: 1.7 m Weight: 81.1 kg Laboratory Results:: Laboratory Results - last 24 hr 09/20/22 20:42: WBC 20.7 H*, RBC 3.61 L, Hgb 11.5 L, Hct 34.7 L, MCV 96.1, MCH 31.8 H, MCHC 33.1, RDW 12.5, Plt Count 395, MPV 7.8, Neut % (Auto) 92.6 H, Lymph % (Auto) 2.5 L, Ralls % (Auto) 3.5, Eos % (Auto) 1.2, Baso % (Auto) 0.3, Neut # (Auto) 19.2 H, Lymph # (Auto) 0.5 L, Ralls # (Auto) 0.7, Eos # (Auto) 0.3, Baso # (Auto) 0.1, Total Counted 100, Neutrophils % (Manual) 90 H, Lymphocytes % (Manual) 7 L, Monocytes % (Manual) 3, Platelet Estimate Normal, RBC Morphology Normal, ESR 106 H 09/20/22 20:42: Sodium 131 L, Potassium 4.8, Chloride 96 L, Carbon Dioxide 28, Anion Gap 11.8, BUN 17, Creatinine 0.80, Estimated Creat Clear 63, Estimated GFR 70, Est GFR ( Amer) 84, Glucose 152 H, Calcium 8.4, Total Bilirubin 0.6, AST 27, ALT 17, Alkaline Phosphatase 93, Troponin I < 0.01, C-Reactive Protein 21.4 H, NT-Pro-B Natriuret Pep 485 H, Total Protein 7.3, Albumin 3.7, Globulin 3.6 H, Albumin/Globulin Ratio 1.0 L, Procalcitonin 0.277 09/20/22 20:42: Lactate 1.3 09/20/22 20:42: Procalcitonin 0.293 09/20/22 20:42: D-Dimer 1.36 H 09/20/22 20:46: Specimen Source Right radial, O2 % 100, ABG pH 7.47 H, ABG pCO2 37.6, ABG pO2 94.0, ABG HCO3 26.6 H, ABG Total CO2 27.8 H, ABG O2 Saturation 98, ABG Base Excess 2.9 H, Pedrito Test Acceptable 09/20/22 21:03: SARS-CoV-2 (PCR) Not detected, Influenza A Untype (PCR) Not detected, Influenza Type B (PCR) Not detected 09/20/22 23:38: Troponin I < 0.01 09/21/22 02:50: Troponin I < 0.01 09/21/22 06:26: WBC 19.0 H, RBC 3.20 L, Hgb 10.2 L D, Hct 31.4 L, MCV 98.1, MCH 31.9 H, MCHC 32.5, RDW 12.5, Plt Count 297, MPV 7.7, Neut % (Auto) 93.3 H, Lymph % (Auto) 4.2 L, Ralls % (Auto) 1.2 L, Eos % (Auto) 1.2, Baso % (Auto) 0.2, Neut # (Auto) 17.7 H, Lymph # (Auto) 0.8, Ralls # (Auto) 0.2, Eos # (Auto) 0.2, Baso # (Auto) 0.0, Total Counted 100, Neutrophils % (Manual) 91 H, Lymphocytes % (Manual) 8 L, Monocytes % (Manual) 1 L, Platelet Estimate Normal, RBC Morphology Normal 09/21/22 06:26: Sodium
--- NOTE | 2022-09-21 09:30 | EXP.PN ---
Subjective *Date: 09/21/22 *Time: 09:30 Interval history: Date of service September 21, 2022 The patient reports no acute events since admission. She reports improved dyspnea. I am accompanied by several members of the multidisciplinary rounds team including her nurse and disease case manager. I have discussed with the patient the findings on CT of her chest including a 5.7 cm mediastinal mass and concerns for postobstructive pneumonia. We have discussed the possibility for transition of care to tertiary care facility versus treatment and outpatient follow-up. She would like for her daughter Arin to be present to have further discussions concerning her imaging. Nursing staff report that she remains afebrile with stable vital signs and saturating appropriately on 4 L of oxygen. Her typical home oxygen requirement is 4 L. She reports that she lives with her daughter Arin, ambulates with a rolling walker and mostly watches TV all day. She identifies with the Confucianist yemi. Her morning labs have been reviewed including an improved leukocytoses, stable hemoglobin and normal creatinine. Exam Data for Last 24 hours Vital signs and Labs for Last 24 Hours: Temp Pulse Resp BP Pulse Ox 98.4 F 72 18 116/51 L 96 09/21/22 08:00 09/21/22 08:56 09/21/22 08:56 09/21/22 08:00 09/21/22 08:00 Laboratory Results - last 24 hr 09/20/22 20:42: WBC 20.7 H*, RBC 3.61 L, Hgb 11.5 L, Hct 34.7 L, MCV 96.1, MCH 31.8 H, MCHC 33.1, RDW 12.5, Plt Count 395, MPV 7.8, Neut % (Auto) 92.6 H, Lymph % (Auto) 2.5 L, [place] % (Auto) 3.5, Eos % (Auto) 1.2, Baso % (Auto) 0.3, Neut # (Auto) 19.2 H, Lymph # (Auto) 0.5 L, [place] # (Auto) 0.7, Eos # (Auto) 0.3, Baso # (Auto) 0.1, Total Counted 100, Neutrophils % (Manual) 90 H, Lymphocytes % (Manual) 7 L, Monocytes % (Manual) 3, Platelet Estimate Normal, RBC Morphology Normal, ESR 106 H 09/20/22 20:42: Sodium 131 L, Potassium 4.8, Chloride 96 L, Carbon Dioxide 28, Anion Gap 11.8, BUN 17, Creatinine 0.80, Estimated Creat Clear 63, Estimated GFR 70, Est GFR ( Amer) 84, Glucose 152 H, Calcium 8.4, Total Bilirubin 0.6, AST 27, ALT 17, Alkaline Phosphatase 93, Troponin I < 0.01, C-Reactive Protein 21.4 H, NT-Pro-B Natriuret Pep 485 H, Total Protein 7.3, Albumin 3.7, Globulin 3.6 H, Albumin/Globulin Ratio 1.0 L, Procalcitonin 0.277 09/20/22 20:42: Lactate 1.3 09/20/22 20:42: Procalcitonin 0.293 09/20/22 20:42: D-Dimer 1.36 H 09/20/22 20:46: Specimen Source Right radial, O2 % 100, ABG pH 7.47 H, ABG pCO2 37.6, ABG pO2 94.0, ABG HCO3 26.6 H, ABG Total CO2 27.8 H, ABG O2 Saturation 98, ABG Base Excess 2.9 H, Pedrito Test Acceptable 09/20/22 21:03: SARS-CoV-2 (PCR) Not detected, Influenza A Untype (PCR) Not detected, Influenza Type B (PCR) Not detected 09/20/22 23:38: Troponin I < 0.01 09/21/22 02:50: Troponin I < 0.01 09/21/22 06:26: WBC 19.0 H, RBC 3.20 L, Hgb 10.2 L D, Hct 31.4 L, MCV 98.1, MCH 31.9 H, MCHC 32.5, RDW 12.5, Plt Count 297, MPV 7.7, Neut % (Auto) 93.3 H, Lymph % (Auto) 4.2 L, [place] % (Auto) 1.2 L, Eos % (Auto) 1.2, Baso % (Auto) 0.2, Neut # (Auto) 17.7 H, Lymph # (Auto) 0.8, [place] # (Auto) 0.2, Eos # (Auto) 0.2, Baso # (Auto) 0.0, Total Counted 100, Neutrophils % (Manual) 91 H, Lymphocytes % (Manual) 8 L, Monocytes % (Manual) 1 L, Platelet Estimate Normal, RBC Morphology Normal 09/21/22 06:26: Sodium 130 L, Potassium 4.9, Chloride 96 L, Carbon Dioxide 30, Anion Gap 8.9, BUN 20 H, Creatinine 0.80, Estimated Creat Clear 45, Estimated GFR 70, Est GFR ( Amer) 84, Glucose 187 H D, Calcium 8.3 L, Total Bilirubin 0.5, AST 28, ALT 14, Alkaline Phosphatase 75, Total Protein 6.7, Albumin 3.4 L, Globulin 3.3 H, Albumin/Globulin Ratio 1.0 L 09/21/22 06:49: POC Glucose 198 H I & O for Last 24 hours: Intake & Output 09/18/22 09/19/22 09/20/22 09/21/22 23:59 23:59 23:59 23:59 Intake Total 600 / 600 Output Total 250 / 250 Balance 350 / 350 Weight 80.195 kg 81.1 kg Constitutional Constitutional: no acute distress and c
--- NOTE | 2022-09-21 10:25 | HMH.PHAINT1 ---
Pharmacy Intervention Comments: Home medication reconciliation completed on patient using external fill history from outside pharmacy. -Coleen Celis, PharmD Candidate 2022
[2022-09-21 11:40] LABS: POC Glucose,Bedside 302 (70-110)
--- NOTE | 2022-09-21 16:30 | PC.NURSE ---
This nurse was in attendance while Dr. Abbott discussed disease process and treatment options with patient and family
[2022-09-21 16:53] LABS: POC Glucose,Bedside 284 (70-110)
--- NOTE | 2022-09-21 19:06 | PC.NURSE ---
Alert and oriented. Patient up to chair and bedside commode with 2. Minimal oral intake. SOB with minimal exertion. Complaint of pain on sacrum and behind left ear. Mepilex applied to sacrum and patient repositioned frequently. On 4L O2 which is her home amount. Nasal Cannula foam covers applied. Hospice consult planned for tomorrow.
[2022-09-21 20:15] LABS: POC Glucose,Bedside 330 (70-110)
[2022-09-22] VITALS (14 sets, daily range): BP systolic 90–171; BP diastolic 44–74; PULSE 72–117; RESP 17–54; TEMP 36.4–36.9; O2SAT 88–97; BMI 28.5
--- NOTE | 2022-09-22 05:28 | PC.NURSE ---
PATIENT IS A/O, COOPERATIVE WITH CARE. 02 AT 4LNC. 02 SAT 96%. MEPILEX INTACT TO COCCYX. NO C/O PAIN SINCE 2034 WHEN RECEIVED NORCO FOR PAIN.
[2022-09-22 05:56] LABS: POC Glucose,Bedside 323 (70-110)
[2022-09-22 06:49] LABS: Basophils % 0.1 % (0.1-2.0); Eosinophils % 0.2 % (0.1-12.0); Hemoglobin 9.5 g/dL (12.2-16.2); Lymphocytes # 0.5 K/mm3 (0.7-4.5); Lymphocytes % 2.9 % (10-50); Mean Corpuscular HGB Conc 32.7 g/dL (31.8-35.4); Mean Corpuscular Hemoglobin 32.8 pg (27.0-31.2); Mean Corpuscular Volume 100.3 fl (81-99); Monocytes # 0.3 K/mm3 (0.1-1.0); Monocytes % 1.6 % (1.7-9.3); Neutrophils # 16.5 K/mm3 (1.8-7.8); Neutrophils % 95.3 % (37.0-80.0); Platelet Count 283 K/mm3 (142-424); Red Blood Count 2.89 M/mm3 (4.20-5.40); Red Cell Distribution Width 12.6 % (11.5-17.5); White Blood Count 17.3 K/mm3 (4.8-10.8)
[2022-09-22 06:57] LABS: MANUAL DIFFERENTIAL MANUAL DIFFERENTIAL (MANUAL DIFF)
--- NOTE | 2022-09-22 06:59 | EXP.PN ---
Subjective *Date: 09/22/22 *Time: 12:41 Interval history: Date of service September 22, 2022 The patient reports no acute events overnight. Her daughter visited with her last night and ongoing goals of care conversation occurred at bedside with the patient and daughter at bedside. I was accompanied by the patient's nurse (Tabitha Godinez). The patient understands that she has chronic pulmonary fibrosis, a mediastinal mass identified on CTA on admission, and now positive blood cultures x2. She reiterated her desire for DNR/DNI status. Options were presented to her to transition her care to a tertiary care center and she declined. She reported if she changed her mind she would make outpatient follow-up appointments for evaluation. Her plans are to return home with her daughter. She is amendable to hospice consult. She elects her daughter Arin as her POA. Nursing staff report that she remains afebrile with stable vital signs and saturating appropriately on her usual home oxygen requirement of 4 L. We have reviewed and discussed her morning labs which includes a downward trending white blood cell count. Blood culture sensitivities are pending. She is tolerating her IV antibiotic with no adverse events. Exam Data for Last 24 hours Vital signs and Labs for Last 24 Hours: Temp Pulse Resp BP Pulse Ox 98.1 F 76 17 113/44 L 96 09/22/22 03:31 09/22/22 03:31 09/22/22 03:31 09/22/22 03:31 09/22/22 03:31 Laboratory Results - last 24 hr 09/21/22 06:26: Hgb 10.2 L D, Total Counted 100, Neutrophils % (Manual) 91 H, Lymphocytes % (Manual) 8 L, Monocytes % (Manual) 1 L, Platelet Estimate Normal, RBC Morphology Normal 09/21/22 06:49: POC Glucose 198 H 09/21/22 11:32: POC Glucose 302 H* 09/21/22 16:46: POC Glucose 284 H 09/21/22 19:54: POC Glucose 330 H* 09/22/22 05:09: POC Glucose 323 H* 09/22/22 06:32: WBC 17.3 H, RBC 2.89 L, Hgb 9.5 L, Hct 29.0 L, MCV 100.3 H, MCH 32.8 H, MCHC 32.7, RDW 12.6, Plt Count 283, MPV 8.0, Neut % (Auto) 95.3 H, Lymph % (Auto) 2.9 L, Wheeler % (Auto) 1.6 L, Eos % (Auto) 0.2, Baso % (Auto) 0.1, Neut # (Auto) 16.5 H, Lymph # (Auto) 0.5 L, Wheeler # (Auto) 0.3, Eos # (Auto) 0.0, Baso # (Auto) 0.0 I & O for Last 24 hours: Intake & Output 09/19/22 09/20/22 09/21/22 09/22/22 23:59 23:59 23:59 23:59 Intake Total 1890 / 1890 1062 / 1062 Output Total 800 / 800 400 / 400 Balance 1090 / 1090 662 / 662 Weight 80.195 kg 81 kg 82.327 kg Microbiology Reports for the Last 24 Hours: Microbiology 09/20/22 20:42 Blood Blood Culture - Preliminary 09/20/22 20:42 Blood Blood Culture - Preliminary Constitutional Constitutional: no acute distress and cooperative *Routine HEENT Exam Head: Present normocephalic Eye: Present EOMI and PERRL ENT: Present mucous membranes moist *Routine Neck Exam Neck: Present supple; Absent lymphadenopathy *Routine Respiratory Exam Respiratory: Present rhonchi, normal respiratory effort and symmetric chest movement *Routine Cardiovascular Exam Cardiovascular: Present RRR *Routine Abdominal Exam Abdominal: Present soft and normoactive bowel sounds; Absent tenderness *Routine Extremities Exam Extremities: Present normal capillary refill; Absent cyanosis, clubbing or edema *Routine Skin Exam Skin: Present warm; Absent rash *Routine Neurological Exam Neurological: Present alert, oriented X3, moving all extremities, vision grossly intact, hearing grossly intact and normal speech Routine Psychiatric Exam Psychiatric: Present normal affect, normal thought process, cooperative, good insight and good judgment Assessment and Plan *Assessment and plan (1) Sepsis: Status: Acute Category: Medical Code(s): A41.9 - Sepsis, unspecified organism (2) Acute on chronic respiratory failure with hypoxemia: Status: Acute Category: Medical Code(s): J96.21 - Acute and chronic respiratory failure with hypoxia (3) Obstructive pneumonia: Status: Acut
[2022-09-22 07:01] LABS: Blood Urea Nitrogen 27 mg/dl (7-17); Calcium 7.7 mg/dl (8.4-10.2); Carbon Dioxide 24 mmol/L (22.0-30.0); Chloride 97 mmol/L (98-107); Creatinine Clearance Estimated 62 mL/min (50-200); Estimated Glomerular Filt Rate 81 ml/min (>60); GFR (African American) 98 ML/MIN (>60); Glucose 284 mg/dl (74-100); Sodium 127 mmol/L (136-145)
--- NOTE | 2022-09-22 07:19 | XR_ITS ---
FINAL REPORT CLINICAL HISTORY: Confirm PICC line placement FINDINGS: A portable view of the chest was obtained. Comparison is made to a prior exam dated 09/20/2022. There is a new right PICC line with the tip in the SVC. Cardiac and mediastinal silhouettes are within normal limits. There are stable bilateral coarse interstitial opacities. There are stable peripheral right greater than left lung opacities and bibasilar airspace opacities. No pneumothorax. IMPRESSION: New PICC line. Otherwise stable exam. Reviewed, Interpreted and Dictated by Michelle Butler MD Transcribed by Katt Honeycutt Authenticated and [facility]
[2022-09-22 07:29] LABS: Lymphocytes % 2 % (10-50); Monocytes % 4 % (2-9); Neutrophils % 94 % (42-76); Total Cells Counted 100
[2022-09-22 07:30] LABS: Macrocytosis 1+; Platelet Estimate Normal
[2022-09-22 07:54] LABS: Hemoglobin A1C 6.4 % (4.0-6.0)
[2022-09-22 08:21] LABS: Vitamin B12 689 pg/mL (239-931)
--- NOTE | 2022-09-22 09:37 | SW/DCPLANNER ---
Addendum entered by Carri Merritt 09/22/22 11:45: Patient's daughter (Arin) has called back stating that she has family that is willing to stay home with patient. Family would prefer that patient return home w/ home health services, family at home 27/03 and IV antibiotics. I [facility]. Family is interested in Hospice services once IV antibiotics are completed at home. I will inform Marnie w/ Hospice of patient's contact information to reach out to Arin as she has more questions. Patient is expected to discharge tomorrow. I will let [facility] and [facility] know that patient/family is no longer interested in placement. Addendum entered by Carri Merritt 09/22/22 10:12: Patient information has been faxed to [facility] and [facility] in [facility]. Original Note: This patient resides at home with her daughter. Patient's daughter does work three days a week and patient is home alone. PT/OT will evaluate this patient today. Patient will need IV antibiotics at discharge due to positive blood cultures. I have explained the options of receiving IV antibiotics: return to [facility] outpatient vs home with home health vs placement. After a discussion with patient and daughter we will let PT/OT evaluate then decide on discharge plan. Patient could be medically stable for discharge tomorrow. I will continue to follow up with patient/family.
--- NOTE | 2022-09-22 09:56 | HMH.OTEV ---
OT Inpatient Evaluation Rehab OT IP Evaluation Start: 09/22/22 09:01 Freq: ONCE Status: Active Protocol: Document 09/22/22 09:46 MIKA (Rec: 09/22/22 09:56 MIKA [id number]) Rehab OT IP Assessment Subjective History Ms. Paz is a 77-year-old female with a past medical history of Sjorgens, Lupus on immunosuppressive therapy, Pulmonary Fibrosis/ILD on chronic home oxygen at 4L nasal cannula, Diabetes Mellitus and h/o Diverticultitis. She presents to [facility] due to a reported 1 day history of shortness of air, non- productive cough, weakness. In the ER, the patient was found to have a WBC of 20.7, she was febrile with a temperature of 101.7, HR was elevated at 108, RR was elevated at 24, Chest x-ray showed diffuse interstitial opacities. Qsofa score 2 points (RR >22, SBP <100). In the ER the patient had blood cultures drawn, she is currently meeting criteria for Sepsis without shock. She will be placed on broad spectrum antibiotics due to concern with sepsis and on immunosuppressive drugs. Given her history of lung disease and current complaints , Pulmonary will be consulted to see. Further imaging and cultures will be ordered. Patient lives at home alone -Monday then stays with her daughter Mon-Mon. Dtr will assist patient with bathing. Patient ambulated within home with RW. Subjective I can try to get up. Instructed Patient on proper hand and foot placement to complete bed mobility from supine->sit @ EOB requiring
--- NOTE | 2022-09-22 10:06 | PC.NURSE ---
Pt is unable to produce a sputum sample at this time, specimen cup is at bedside.
--- NOTE | 2022-09-22 10:10 | PC.NURSE ---
Notified by PICC team that patient's PICC is okay to use
--- NOTE | 2022-09-22 10:20 | HMH.PTEV ---
Physical Therapy Evaluation Rehab PT IP Evaluation Start: 09/22/22 09:01 Freq: ONCE Status: Active Protocol: Document 09/22/22 10:14 ALYSSA (Rec: 09/22/22 10:19 PHONARCISO [id number]) Subjective/History History History 77 yowf adm to [facility] with sepsis . She reports she lives alone, but stays with her daughter several days a wk currently. She has 3-4 steps to enter the home, uses a cane or a walker for ambulation at baseline and oxygen via NC at all times . Subjective Subjective Pt c/o feeling tired and generally weak at this time. Increased SOA with mobility. Rehab PT IP Eval Objective Appearance Patient Behavior Appropriate Patient Orientation Person,Place,Time Difficulty following instructions none Speech Pattern Clear Ambulation Patient Able to Ambulate Yes Ambulation Observation IP General Gait Pattern Observation Shuffling Step Ambulation Distance (feet) 10 Ambulation Assistive Device Rolling Walker Ambulation Ability Contact Guard/Hand Hold Balance Ability to Arise Able, uses arms to help Sitting Balance Steady, safe Standing Balance Steady, wide stance Dynamic Sitting Balance Ability Good Dynamic Standing Balance Ability Fair Transfers Bed Transfer Ability Contact Guard/Hand Hold Chair Transfer Ability Contact Guard/Hand Hold Sit to Stand Bed Transfer Ability Contact Guard/Hand Hold Sit to Stand Chair Transfer Ability Contact Guard/Hand Hold ROM All Extremities PT ROM Status WFL MMT All Extremities PT MMT WFL Rehab PT IP prob,goals,plan Problems Date of Evaluation: 09/22/22 PT IP Problems Bed Mobility,Transfers,Gait, Self care Rehab Potential Rehab Potential Good Plan PT Intervention Plan Bed Mobility,Transfers,Gait, Self care,Therapeutic Exercise PT Plan Frequency Daily Duration LOS Discharge Goals Bed Transfer Ability Supervision/Stand by Sit to Stand Chair Transfer Ability Supervision/Stand by Ambulation Assistive Device Rolling Walker Ambulation Distance (feet) 25 Discharge Plan PT Discharge Plan Pt is currently more SOA and weak than baseline and she is most appropriate for rehab placement at
[2022-09-22 11:17] LABS: POC Glucose,Bedside 320 (70-110)
--- NOTE | 2022-09-22 13:07 | CARE MANAGER ---
Addendum entered by Carri Merritt 09/22/22 15:31: Patient's daughter stated that she would speak with [facility] regarding payment plans. Addendum entered by Carri Merritt 09/22/22 15:00: Patient's IV Rocephin is covered at 100% and supplies will cost $11.80/day. Family has asked that I contact [facility] back regarding not being able to afford cost of $11.80/day: I do have a call out to Jenna woodson/ [facility]. Patient does not have preference of home health agency. Patient does have home O2 through [facility] and has requested a bedside commode and rolling walker be ordered from [facility] at time of discharge. Home health and DME will be ordered at discharge. I will continue to follow up with Jenna at [facility] and patient/family regarding cost of supplies. Original Note: Patient will need IV antibiotics post-discharge, order and demographics faxed to [employer]. Awaiting return call.
[2022-09-22 16:49] LABS: POC Glucose,Bedside 342 (70-110)
--- NOTE | 2022-09-22 17:53 | PC.NURSE ---
Pt alert and oriented. Up with one to chair and bedside commode. VSS. On 4L O2. [place] for chronic back pain. Patient up in chair most of the afternoon. PICC line placed. Plan is to discharge to [facility] for rehab.
[2022-09-22 20:32] LABS: POC Glucose,Bedside 235 (70-110)
--- NOTE | 2022-09-22 22:41 | XR_ITS ---
PROCEDURE INFORMATION: Exam: XR Chest Exam date and time: 09/22/2022 11:05 PM Age: 77 years old Clinical indication: Shortness of breath TECHNIQUE: Imaging protocol: Radiologic exam of the chest. Views: 1 view. COMPARISON: CR XR CHEST PORTABLE PICC PLAC 09/22/2022 8:46 AM FINDINGS: Tubes, catheters and devices: Right upper extremity PICC appears to be in good position. Lungs: Significant diffuse alveolar infiltrates are present throughout both lungs, moderately worsened from the earlier study. Pleural spaces: Unremarkable. No pleural effusion. No pneumothorax. Heart/Mediastinum: Unremarkable. No cardiomegaly. Bones/joints: Unremarkable. IMPRESSION: Interval worsening of severe diffuse bilateral alveolar infiltrates. Patchy distribution suggests pneumonia rather than pulmonary edema.
--- NOTE | 2022-09-22 22:42 | PC.NURSE ---
AT 2230 PATIENT CALLED OUT SAYING SHE COULD NOT BREATH. 02 SAT 64-66% ON 4LNC. COARSE WHEEZES THROUGHOUT. DRY COUGH PERSISTANT. R.T.CALLED. HOSPITALIST NOTIFIED.
--- NOTE | 2022-09-22 23:12 | PC.NURSE ---
0.25mg lorazepam given per verbal order at bedside from JUNITO Rubalcava for respiratory distress, verified with YAMILETH Vazquez
--- NOTE | 2022-09-22 23:30 | PC.NURSE ---
moved pt to 218 from 203 and transferred to stepdown for respiratory distress, JUNITO Rubalcava notified pt's daughter, pt on 100% bipap with sats 90-92%, pt anxious and tachypneic RR 55, HR 114, bp 165/81 upon arrival to room, JUNITO Rubalcava ordered another dose of lorazepam 0.5mg and was given by Taylor CARSON prior to moving pt
--- NOTE | 2022-09-22 23:31 | PC.NURSE ---
PATIENT TRANFERED TO STEP DOWN AT 2320.
[2022-09-23] VITALS (9 sets, daily range): BP systolic 135–184; BP diastolic 68–84; PULSE 106–115; RESP 20–57; O2SAT 51–93; BMI 28.4
--- NOTE | 2022-09-23 00:16 | EXP.EVENT.NO ---
At approximately 10:30 PM bedside RN notified me of acute respiratory distress. Patient was noted to have oxygen saturations in the 60s with audible rhonchi. I presented to the bedside to find patient in severe respiratory distress, tachycardic in the 130s, tachypneic in the 40s with oxygen saturation of 70% on high flow nasal cannula. Vapotherm attempted with administration of DuoNeb, Solu-Medrol, magnesium with slight improvement in status. Patient transition to BiPAP with increased oxygenation to the low 90s on 100% FiO2. Chest x-ray reveals worsening pneumonia but possible pulmonary edema as well. Patient given Lasix and transition to stepdown for closer monitoring. During emergent event, spoke with patient and daughter about wishes for intubation. Daughter states that the decision was left up to her mother. Patient stated that she would do what ever it took to help her breathing. Explained to patient risks and benefits versus intubation. she still reports that if necessary she would like a trial of short-term intubation, despite previous descussions regarding hospice. She currently is on BiPAP with oxygenation in the low 90s although still tachypneic. IV Ativan ordered to aid in anxiolysis. We will continue to closely monitor patient's status and revisit airway conversation if necessary.
--- NOTE | 2022-09-23 00:55 | PC.NURSE ---
pt's RR increased to 50's, pt very anxious, pt wants bipap off but oxygen saturation are 86-88% on 100% BIPAP, notified JUNITO Rubalcava, 1mg lorazepam ordered for anxiety, 1mg lorazepam given, pt's RR decreasing but still in 40's, oxygen saturation 91% on 100% BIPAP, HR 104, bp 169/79
--- NOTE | 2022-09-23 02:16 | EXP.EVENT.NO ---
Pt with declining respiratory status despite optimizing therapies. Currently with Fi02 of 100% with oxygen sats in High 80s. Spoke with patient again regarding intubation. Discussed with her her conversation with dayshift attending and her daughter yesterday. Informed her that mechanical ventilation was not in line with her wishes for DNR/DNI status and hospice. Reiterated the significance of her mediastinal mass and lung disease. Spoke with daughter Arin this as well. Both patient and daughter are in agreement that prolonged mechanical ventilation would not be their choice of end-of-life care. Patient will remain on BiPAP at this time with no intent for intubation and mechanical ventilation. Informed Arin that she may want to visit hospital as patient seem to be deteriorating. She voices understanding. Ankur Jackson is in agreement with stated plan of care nursing and myself have been at the bedside to offer comfort.
--- NOTE | 2022-09-23 03:50 | PC.NURSE ---
pt's daughter at bedside, JUNITO Rubalcava discussing plan of care with daughter, pt continues on 100% BIPAP and oxygen saturations are 80-84%; took bipap mask off to swab pt's mouth and pt's oxygen saturations decreased to 69%, changed mask from small to medium mask to keep mask from going into pt's mouth as pt is very uncomfortable; pt's daughter calling other family to come to bedside to support pt; RR 51, HR 108, bp 134/52, O2 sat 84%
--- NOTE | 2022-09-23 06:05 | PC.NURSE ---
JUNITO Rubalcava spoke with family about poc, family waiting on one more family member to arrive, pt to be comfort care at this time
--- NOTE | 2022-09-23 07:05 | EXP.EVENT.NO ---
spoke with family who is at bedside including JASON Hinkle. Patient also reports that she is tired. had goals of care conversation to include transitioning patient over to comfort care. JASON Hinkle is understanding of patient's critical nature and given patient's history and worsening infection, she and family have opted for comfort measures at this time. Spoke with patient regarding her poor prognosis and reports again that she is tired and nods when asked if she understands her situation. Patient has been made comfort care at this time, comfort medications ordered. Time to express needs and questions were offered to family at bedside and they voiced understanding.
--- NOTE | 2022-09-23 10:14 | PC.NURSE ---
0800- Patient given comfort meds, removed from bipap and placed on nasal cannula per family request 0827- Patient , Dr Abbott at bedside to pronounce 09- [facility] contacted, ruled out for donation, [facility] shafer Bridgett George Case#- [id number]- Released to [facility] at this time, Patient belongings sent home with Daughter Arin Garcia
--- NOTE | 2022-09-23 13:03 | EXP.DC.SUM ---
General Admission date:: 09/20/22 Discharge date: 09/23/22 HPI HPI HPI: Ms. Paz is a 77-year-old female with a past medical history of Sjorgens, Lupus on immunosuppressive therapy, Pulmonary Fibrosis/ILD on chronic home oxygen at 4L nasal cannula, Diabetes Mellitus and h/o Diverticultitis. She presents to [facility] due to a reported 1 day history of shortness of air, non-productive cough, weakness. In the ER, the patient was found to have a WBC of 20.7, she was febrile with a temperature of 101.7, HR was elevated at 108, RR was elevated at 24, Chest x-ray showed diffuse interstitial opacities. Qsofa score 2 points (RR >22, SBP <100). In the ER the patient had blood cultures drawn, she is currently meeting criteria for Sepsis without shock. She will be placed on broad spectrum antibiotics due to concern with sepsis and on immunosuppressive drugs. Given her history of lung disease and current complaints, Pulmonary will be consulted to see. Further imaging and cultures will be ordered. The plan of care was discussed with the patient and her daughter at bedside on admission. Both verbalized understanding and agreement with the plan of care. Hospital Course Hospital Course Hospital Course: The patient was admitted to the medical unit with blood cultures and IV fluid resuscitation. She was started on broad-spectrum antibiotic therapy and her labs and inflammatory markers were trended. Chest imaging identified a hilar mass and goals of care discussion occurred with patient and daughter at bedside. The patient elected not to transition her care to tertiary care center and voiced interest in hospice care on discharge. Her chest imaging also identified pulmonary fibrosis and previous PFTs in the fall 2021 identified FEV1 25%. Her leukocytoses improved and her blood cultures identified Streptococcus in both bottles. On the evening of September 22 staff identified increased oxygen requirements to maintain appropriate oxygen saturations. The patient reported dyspnea. Her daughter remained at bedside. Follow-up imaging identified concerns for ARDS. Further goals of care discussion occurred and the patient and family elected for comfort care measures. I was called to the patient's bedside to pronounce her on the morning of September 23, 2022 at 0829. No spontaneous movements were present and there was no response to verbal or tactile stimuli. Pupils were fixed and unresponsive to light. No corneal reflex was identified. No breath sounds were appreciated over either lung field. No heart sounds were auscultated no pulses were palpable. The family at bedside has been counseled and my condolences were expressed to the family and staff. Exam Data for Last 24 hours Vital signs and Labs for Last 24 Hours: Temp Pulse Resp BP Pulse Ox FiO2 98.2 F 115 H 45 H 182/84 H 51 L 100 09/22/22 19:44 09/23/22 06:00 09/23/22 06:00 09/23/22 06:00 09/23/22 08:00 09/23/22 03:00 Laboratory Results - last 24 hr 09/22/22 16:43: POC Glucose 342 H* 09/22/22 20:26: POC Glucose 235 H I & O for Last 24 hours: Intake & Output 09/20/22 09/21/22 09/22/22 09/23/22 23:59 23:59 23:59 23:59 Intake Total 1890 / 1890 2932 / 2932 100 / 100 Output Total 800 / 800 800 / 800 550 / 550 Balance 1090 / 1090 2132 / 2132 -450 / -450 Weight 80.195 kg 81 kg 82.327 kg 82.125 kg Microbiology Reports for the Last 24 Hours: Microbiology 09/20/22 20:42 Blood Blood Culture - Final Streptococcus pneumoniae 09/20/22 20:42 Blood Blood Culture - Final Streptococcus pneumoniae Constitutional Comments: Unresponsive *Routine HEENT Exam Comments: Pupils dilated and fixed with no corneal reflex *Routine Respiratory Exam Comments: Absent breath sounds with no chest rise *Routine Cardiovascular Exam Comments: Asystolic with cool extremities and no peripheral pulses *Rout
[2022-09-23 16:08] LABS: Legionella pneumophila Urinary Negative (Negative)
[2022-09-24 22:40] LABS: MRSA DNA PCR NEGATIVE
[2022-09-26 18:08] LABS: Body Fluid Culture, Sterile Not indicated. (.); Organism ID Not indicated. (.); Specimen Source Urine (.); Streptococcus pneumoniae Ag Negative (Negative)
== END 2022-09-23 10:11 | disposition expired | DRG 871 ==
LOC: ER 21:36 → 2ND 22:07
PROVIDERS: Nurse Practitioner Family; Admitting Provider Student in an Organized Health Care Education/Training Program; Emergency Provider Emergency Medicine; PCP Family Medicine; Visit Provider Family Medicine
DX: A41.9 Sepsis, unspecified organism (principal); J96.01 Acute respiratory failure with hypoxia; J44.1 Chronic obstructive pulmonary disease with (acute) exacerbation; D84.81 Immunodeficiency due to conditions classified elsewhere; J84.9 Interstitial pulmonary disease, unspecified; Z51.5 Encounter for palliative care; J84.89 Other specified interstitial pulmonary diseases; J84.10 Pulmonary fibrosis, unspecified; Z79.4 Long term (current) use of insulin; E11.9 Type 2 diabetes mellitus without complications; M32.9 Systemic lupus erythematosus, unspecified; Z99.81 Dependence on supplemental oxygen; Z87.891 Personal history of nicotine dependence; M35.00 Sjogren syndrome, unspecified
CPT/HCPCS: 36410; 36415; 36569; 71045; 71275; 80048; 80053; 82607; 82803; 82962; 83036; 83605; 83880; 84145; 84484; 85007; 85014; 85018; 85025; 85048; 85049; 85378; 85651; 86140; 87040; 87077; 87186; 87641; 87899; 93005; 94640; 94660; 94760; 94761; 97110; 97162; 97165; 97530; 99285; C1751; C9803; J3475; Q9967; U0003; U0005